=== PATIENT | female | born 1955 | race Caucasian/White ===

== ENCOUNTER 2024-04-10 10:40 | Day surgery (SDC) | payer MEDICARE, OTHER ==
[~2024-04-10] VITALS: Ht 165.1 cm; Wt 74.4 kg
[~2024-04-10 10:40] MED LIST: CYCL10; ENAL10; Lactated Ringer's 1,000 ML IV ONE; MORP30; propofoL 40 ML IV ONE
[2024-04-10] MEDS ORDERED: Lactated Ringer's 1,000 ML IV ONE (11:03)
[2024-04-10] MEDS ORDERED: ONDA4ODT MM (11:05)
[2024-04-10] MEDS ORDERED: CETI5 PO (11:05)
[2024-04-10] MEDS ORDERED: MONT5TCH PO (11:05)
[2024-04-10] MEDS ORDERED: propofoL 20 ML IV ONE (11:31)
== END 2024-04-10 13:00 | disposition home or self-care (01) ==
LOC: ORSCSDS 10:40
PROVIDERS: Specialist
PROC: 0DB58ZX Excision of Esophagus, Via Natural or Artificial Opening Endoscopic, Diagnostic (ICD-10-PCS; principal; 2024-04-10 12:00)
PROC: 0DB98ZX Excision of Duodenum, Via Natural or Artificial Opening Endoscopic, Diagnostic (ICD-10-PCS; principal; 2024-04-10 12:00)
PROC: 0DBN8ZX Excision of Sigmoid Colon, Via Natural or Artificial Opening Endoscopic, Diagnostic (ICD-10-PCS; principal; 2024-04-10 12:00)
PROC: 0DB68ZX Excision of Stomach, Via Natural or Artificial Opening Endoscopic, Diagnostic (ICD-10-PCS; principal; 2024-04-10 12:00)
PROC: 0DBE8ZX Excision of Large Intestine, Via Natural or Artificial Opening Endoscopic, Diagnostic (ICD-10-PCS; principal; 2024-04-10 12:00)
PROC: 0D758ZZ Dilation of Esophagus, Via Natural or Artificial Opening Endoscopic (ICD-10-PCS; principal; 2024-04-10 12:00)
DX: R11.2 Nausea with vomiting, unspecified (principal); R13.10 Dysphagia, unspecified; D12.5 Benign neoplasm of sigmoid colon; K64.8 Other hemorrhoids; K57.30 Diverticulosis of large intestine without perforation or abscess without bleeding; Z86.0100 Personal history of colon polyps, unspecified; R68.81 Early satiety; R10.11 Right upper quadrant pain; R19.7 Diarrhea, unspecified; K62.5 Hemorrhage of anus and rectum; K76.0 Fatty (change of) liver, not elsewhere classified; I10 Essential (primary) hypertension; Z86.19 Personal history of other infectious and parasitic diseases; R10.84 Generalized abdominal pain; Z79.899 Other long term (current) drug therapy
CPT/HCPCS: 88305; 88312; 88342; C1769; J2704; J7120